=== PATIENT | male | born 1985 | race Hispanic/Latino ===

== ENCOUNTER 2021-06-02 10:30 | Emergency (ER) | payer SELFPAY ==
[~2021-06-02] VITALS: Ht 172.7 cm; Wt 73.0 kg
[2021-06-02] MEDS ORDERED: LIDOCAINE HCL VIS2 % PO (13:50)
[2021-06-02] MEDS ORDERED: TORADOL PO (13:50)
[2021-06-02 14:04] VITALS: BP 135/66
== END 2021-06-02 14:10 | disposition home or self-care (01) | DRG 195 ==
LOC: ED 10:30
DX: J10.1 Influenza due to other identified influenza virus with other respiratory manifestations (principal); Z20.822 Contact with and (suspected) exposure to COVID-19

== ENCOUNTER 2021-09-05 12:01 | Emergency (ER) | payer SELFPAY ==
[2021-09-05] VITALS (10 sets, daily range): BP systolic 113–133; BP diastolic 70–84
[~2021-09-05] VITALS: Ht 172.7 cm; Wt 78.0 kg
[~2021-09-05 12:01] MED LIST: LIDOCAINE HCL VIS2 % PO; TORADOL PO
[2021-09-05 12:51] LABS: HEMATOCRIT 41.9 % (39.0-50.0); HEMOGLOBIN 14.6 g/dl (14.0-18.0); IMMATURE GRANULOCYTES 0.4 % (0.0-5.0); MEAN CELL VOLUME 87.7 fL CALC (80.0-100.0); MEAN CORPUSCULAR HGB 30.5 pG CALC (26.0-32.0); MEAN CORPUSCULAR HGB CONC 34.8 g/dL CAL (32.0-36.0); NEUT# 6.65 thou/uL (1.82-7.42); RED BLOOD COUNT 4.78 mill/uL (4.70-6.10); RED CELL DISTRI WIDTH 13.1 % (11.5-15.5)
[2021-09-05 13:09] LABS: ALBUMIN 4.4 g/dL (3.2-5.0); ALKALINE PHOSPHATASE 75 u/l (38-126); AMYLASE 83 u/l (30-110); ANION GAP 12 (6-22 (CALC)); BILIRUBIN, TOTAL 0.5 mg/dL (0.0-1.4); BUN 16 mg/dL (9-20); BUN/CREATININE RATIO 21 (12-20 (CALC)); CARBON DIOXIDE 26 mmol/l (22-30); CHLORIDE 105 mmol/l (95-108); CREATININE 0.7 mg/dL (0.7-1.3); GFR > 60 ML/MIN (>=60 (CALC)); GFR FOR AFR.AMER. > 60 ML/MIN (>=60 (CALC)); LIPASE 45 u/l (23-300); POTASSIUM 3.6 mmol/l (3.5-5.1); SGOT/AST 33 u/l (17-59); SODIUM 139 mmol/l (137-146); TOTAL PROTEIN 8.2 g/dL (6.3-8.2)
[2021-09-05 13:20] LABS: MYOGLOBIN 38 ng/mL (0 - 121)
[2021-09-05 13:59] LABS: URINE BILIRUBIN - DIPSTICK NEGATIVE (NEGATIVE); URINE BLOOD DIPSTICK NEGATIVE (NEGATIVE); URINE COLOR YELLOW; URINE GLUCOSE - DIPSTICK NEGATIVE (NEGATIVE); URINE KETONE TRACE mg/dL (NEGATIVE); URINE LEUK ESTERASE NEGATIVE (NEGATIVE); URINE PH 6.5 (4.5-8.0); URINE PROTEIN - DIPSTICK NEGATIVE (NEG-TRACE); URINE SPECIFIC GRAVITY 1.025; URINE UROBILINOGEN - DIPSTICK 0.2 E.U./dL (0.2)
[2021-09-05 14:03] LABS: URINE NITRITE - DIPSTICK NEGATIVE (Negative)
[2021-09-05] MEDS ORDERED: PROTONIX40 M2 PO (14:34)
== END 2021-09-05 15:05 | disposition home or self-care (01) | DRG 392 ==
LOC: ED 12:01
PROVIDERS: Nurse Practitioner
DX: K29.70 Gastritis, unspecified, without bleeding (principal)